=== PATIENT | male | born 1970 | race Caucasian/White ===

== ENCOUNTER 2021-10-17 21:22 | Inpatient (IN) | payer OTHER, SELFPAY ==
--- NOTE | ~2021-10-17 | CT_ITS ---
EXAMINATION: CT HEAD WITHOUT CONTRAST CLINICAL INFORMATION: Seizure COMPARISON: None TECHNIQUE: Contiguous axial imaging was performed from the skull base to vertex without intravenous administration of contrast. This CT examination was performed using dose optimization techniques as appropriate, variously including the following: *Automated exposure control *Adjustment of mA and/or kV according to patient size (this includes techniques or standardized protocols for targeted exams where dose is matched to indication/reason for exam; i.e. extremities or head) *Use of iterative reconstruction technique DLP: 820 mGy-cm FINDINGS: There is no midline shift. There is no mass effect. There is no hemorrhage. The basal cisterns appear patent. The posterior fossa is grossly within normal limits. No extra-axial collection. There is some evidence of atrophy in this patient. Some probable scattered areas of white matter ischemic change. Bone windows show grossly clear sinuses. Be difficult to exclude a small aneurysm in the left middle cerebral region seen on image 20 of series 2. Measures [address] head/brain wo IV con IMPRESSION: Negative acute noncontrast CT of the brain. There is some evidence of atrophy here and possible scattered white matter ischemic change. Cannot exclude a small aneurysm involving the left middle cerebral artery. Consider CTA to further evaluate Given the history of seizure if further evaluation is warranted recommendation is pre and postcontrast MRI.
--- NOTE | ~2021-10-17 | CT_ITS ---
CT ANGIOGRAM NECK WITH CONTRAST CT ANGIOGRAM BRAIN WITH CONTRAST CLINICAL INFORMATION: Question left MCA aneurysm. COMPARISON: Head CT 10/17/2021. TECHNIQUE: Test bolus sequences followed by intravenous administration 70 mL of Omnipaque 350. Helical imaging was performed in the axial plane from the thoracic inlet to the skull vertex. Delayed postcontrast imaging of the head was also performed. The data was processed at the vascular technologist sonographer workstation for generation of MIP sequences. Angled MIPs and volume rendered reformatted images were also generated at an offline 3D workstation under concurrent supervision. Stenoses are assessed in accordance with NASCET criteria unless otherwise indicated. This CT examination was performed using dose optimization techniques as appropriate, variously including the following: *Automated exposure control *Adjustment of mA and/or kV according to patient size (this includes techniques or standardized protocols for targeted exams where dose is matched to indication/reason for exam; i.e. extremities or head) *Use of iterative reconstruction technique FINDINGS: BRAIN: Empty sella again noted. No pathologic enhancement intracranially. [There is no intracranial hemorrhage, hydrocephalus, extra-axial surface collection, midline shift, or other herniation pattern. Ware to white matter differentiation is diffusely maintained without evidence of an evolved acute territorial infarct. The basilar cisterns are preserved. No significant soft tissue abnormality. No acute osseous abnormality. The paranasal sinuses and the mastoid air cells are well aerated.] CERVICAL SOFT TISSUES AND LUNG APICES: Multilevel cervical spondylosis. Imaged upper lungs are clear. No significant soft tissue findings. NECK CTA: [There is a classic 3 vessel configuration of the aortic arch. Proximal arch vessels are non-stenotic. The vertebral arteries are codominant. No significant ostial stenosis is visualized on either side. Both vertebral arteries are widely patent throughout their extracranial cervical course. Both common and internal carotid arteries are normal in course and caliber.] BRAIN CTA: [There is normal opacification of major intracranial arteries. No focal flow-limiting stenosis nor discrete proximal large artery occlusion. There is a 2 mm infundibulum versus aneurysm at the origin of the hypoplastic left posterior communicating artery. Possible 2 mm aneurysm projecting superiorly from the left MCA trifurcation on image 399 of series 6. Timing of the contrast bolus allows assessment of the major dural venous sinuses, which all opacify normally] CT/CT angio head neck IMPRESSION: - No acute intracranial findings. Empty sella. - Possible 2 mm aneurysm projecting superiorly from the left MCA trifurcation on image 399 of series 6. 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
--- NOTE | 2021-10-17 21:41 | ECG_ITS ---
Test Reason : SEIZURE Blood Pressure : / mmHG Vent. Rate : 092 BPM Atrial Rate : 092 BPM P-R Int : 142 ms QRS Dur : 094 ms QT Int : 392 ms P-R-T Axes : 042 -59 035 degrees QTc Int : 484 ms Normal sinus rhythm Incomplete right bundle branch block Left anterior fascicular block Cannot rule out Anterior infarct , age undetermined Abnormal ECG No previous ECGs available Referred By: Tita Palacio Electronically Signed By:HIREN REYES
[2021-10-17 21:44] VITALS: BP 160/95; BP 190/108; PULSE 110; PULSE 96; RESP 20; TEMP 38.2; O2SAT 94; O2SAT 97; BMI 26.4
--- NOTE | 2021-10-17 21:45 | PC.NURSE ---
seizure pads applied
--- NOTE | 2021-10-17 21:45 | ED.GENADULT ---
HPI - General Adult General Chief complaint: Seizure Stated complaint: sycope Time Seen by Provider: 10/17/21 21:32 Source: patient and EMS Mode of arrival: EMS Limitations: other ( Mildly postictal) History of Present Illness HPI narrative: patient comes to the emergency room after having a seizure. To patient's knowledge, he does not remember what happened. fire department reports that patient was in [place] with his family, his witnessed the patient having a seizure, unclear how long it lasted. The reports that the patient has history of alcohol abuse, currently going to [place]. patient states that the last time he had any alcohol was couple of months ago. Patient has no history of seizures. Patient is visiting from a town near [place], [place]. Patient is helping his daughter moved to [employer]. Patient denies any headache, no pain, patient seems to be a bit confused, still postictal. No chest pain or shortness of breath. Related Data Allergies Allergy/AdvReac Type Severity Reaction Status Date / Time No Known Allergies Allergy Verified 10/17/21 21:41 Review of Systems Review of Systems: Constitutional : No Weight loss, No Fever, No Chills, No Night Sweats, No Fatigue, No Malaise ENT/Mouth : No Hearing loss, No Ear Pain, No Nasal Congestion, No Sinus Pain, No Hoarseness, No sore throat, No Rhinorrhea, No Swallowing Difficulty Eyes: No Eye Pain, No Swelling, No Redness, No Foreign Body, No Discharge, No Vision Changes Cardiovascular : No Chest Pain, No SOB, No Dyspnea on Exertion, No Orthopnea, No Edema, No Palpitations Respiratory : No Cough, No Sputum, No Wheezing, No Smoke Exposure, No Dyspnea Gastrointestinal : No Nausea, No Vomiting, No Diarrhea, No Constipation, No abdominal Pain, No Hematochezia, No Melena Genitourinary : no irregular bleeding, No Dysuria, No Urinary Frequency, No Hematuria, No Urinary Incontinence, No Urgency, No Flank Pain, No Urinary Flow Changes, No Hesitancy Musculoskeletal : No joint pain, No Myalgias, No Joint Swelling Skin : No Skin Lesions, No rash Neuro : No Weakness, No Numbness, No Paresthesias, No Loss of Consciousness, No Dizziness, No Headache , bystanders confirmed they saw that the patient had a seizure Psych : No Anxiety/Panic, No Depression, No SI/HI/AH/VH, No Social Issues, Heme/Lymph: No Bruising, No Bleeding,No Lymphadenopathy Endocrine : No Polyuria, No Polydipsia, No Temperature Intolerance [facility] Past Medical History Medical History (Updated 10/18/21 @ 00:22 by Tita Palacio MD) Alcohol dependence Hypertension Social History Social History Patient Tobacco Use Status: Never used Tobacco Use of substances other than those prescribed or required for medical reasons: No Advance Directives: No Advance Directives Information Provided: Yes Physical Exam ED Vital Signs: Vital Signs - 24 hr 10/17/21 21:44 10/18/21 00:04 Temperature 100.8 F H 98.8 F Pulse Rate 96 Respiratory Rate 20 Blood Pressure 190/108 H Pulse Oximetry 94 Oxygen Delivery Method Room Air BMI result Body Mass Index 26.4 Const Other: Appearance: No acute distress. alert and oriented x3, mildly confused/ postictal, did not have urinary incontinence Eyes: Pupils equal, round and reactive to light. ENT: Pharynx normal. no tongue biting Neck: Normal inspection. Neck supple. No lymph nodes noted. No crepitus CVS: Normal heart rate and rhythm. Pulses normal. Normal S1 and S2 Respiratory: No respiratory distress. Breath sounds normal. No Wheezing. No rales Abdomen: Soft and nontender. No rigidity. No distention. Skin: Skin warm and dry. Normal skin color. Normal skin turgor. Extremities: No lower extremity edema. No Lacerations. No Rash Neuro: Oriented X 3. No motor deficit. No sensory deficit. Moving all extremities. No slurred speech. CN 2 through 12 grossly intact Psych: calm, cooperative, normal affect Course Course Course Narrative: patient states that the last time he had alcohol was over 2 months ago, and he has no history of seizures. All of the patient's labs and imaging pending. At this time, patient is alert and oriented x3, but slightly confused/postictal. Patient's blood alcohol is negative. I was able to get in touch with the patient's ex- with his permission. Alona, patient's ex- is concerned that the patient is actually having alcohol withdrawal seizures. She states that the patient does lie a lot about his alcohol intake and when was the last time that he consumed alcohol. He has been seen intoxicated less than a month ago. They do agree that the patient has been trying not to drink as much in this trip. Overall, it is likely that the patient had an alcohol withdrawal seizure. On arrival, patient received 2 mg of p.o. lorazepam. Patient is being started on phenobarb protocol. I discussed the patient with Dr. Tejada, patient being admitted Medical Decision Making Lab Data Result diagrams: 10/17/21 22:12 10/17/21 22:12 Labs: Lab Results 10/17/21 10/17/21 10/17/21 Range/Units 22:11 22:12 22:12 WBC 5.3 (4.8-10.8) X10*3/uL RBC 3.61 L (4.60-5.80) X10*6/uL Hgb 12.2 L (14.0-18.0) g/dl Hct 36.9 L (42.0-52.0) % MCV 102.2 H (80.0-98.0) fL MCH 33.8 H (27.0-33.0) pg MCHC 33.1 (31.0-36.0) g/dl RDW 12.6 (11.0-16.0) % Plt Count 175 (160-400) X10*3/uL MPV 9.4 (9.4-12.4) fL Immature Gran % (Auto) 0.6 H (0.0-0.4) % Neut % (Auto) 70.5 (45-73) % Lymph % (Auto) 11.0 L (20-40) % [place] % (Auto) 15.0 H (2-11) % Eos % (Auto) 2.2 (0-4) % Baso % (Auto) 0.7 (0-2) % Lymph # (Auto) 0.6 L (1.2-4.9) X10*3/uL [place] # (Auto) 0.8 (0.1-1.2) X10*3/uL Eos # (Auto) 0.1 (0.0-0.4) X10*3/uL Baso # (Auto) 0.0 (0.0-0.2) X10*3/uL Abs Immat Gran (auto) 0.03 (0.00-0.03) X10*3/uL Absolute Neuts (auto) 3.8 (2.0-8.3) x10*3/uL Absolute Nucleated RBC 0.000 (0.0-0.012) X10*3/uL Nucleated RBC % (auto) 0.0 (0.0-0.2) /100WBC PT 13.2 H (10.0-13.1) SEC INR 1.1 (0.9-1.1) Sodium (135-145) mmol/L Potassium (3.3-5.1) mmol/L Chloride (96-108) mmol/L Carbon Dioxide (22-29) mmol/L Anion Gap (12-20) BUN (9-16) mg/dL Creatinine (0.5-1.4) mg/dL Estim Creat Clear Calc Estimated GFR Random Glucose (60-115) mg/dL Lactic Acid 4.8 H* (0.5-2.0) mmol/L Calcium (8.4-10.2) mg/dL Magnesium (1.6-2.6) mg/dL Total Bilirubin (0.0-1.0) mg/dL Direct Bilirubin (0.0-0.5) mg/dL AST (5-37) U/L ALT (0-40) U/L Alkaline Phosphatase (39-117) U/L Troponin I High Sens (<3.5-35.0) ng/L Total Protein (6.5-8.0) g/dL Albumin (3.5-5.0) g/dL Ethyl Alcohol mg/dL COVID-19 (DARIAN) (Negative) COVID-19 Clin Com 10/17/21 10/17/21 10/17/21 Range/Units 22:12 22:12 22:12 WBC (4.8-10.8) X10*3/uL RBC (4.60-5.80) X10*6/uL Hgb (14.0-18.0) g/dl Hct (42.0-52.0) % MCV (80.0-98.0) fL MCH (27.0-33.0) pg MCHC (31.0-36.0) g/dl RDW (11.0-16.0) % Plt Count (160-400) X10*3/uL MPV (9.4-12.4) fL Immature Gran % (Auto) (0.0-0.4) % Neut % (Auto) (45-73) % Lymph % (Auto) (20-40) % [place] % (Auto) (2-11) % Eos % (Auto) (0-4) % Baso % (Auto) (0-2) % Lymph # (Auto) (1.2-4.9) X10*3/uL [place] # (Auto) (0.1-1.2) X10*3/uL Eos # (Auto) (0.0-0.4) X10*3/uL Baso # (Auto) (0.0-0.2) X10*3/uL Abs Immat Gran (auto) (0.00-0.03) X10*3/uL Absolute Neuts (auto) (2.0-8.3) x10*3/uL Absolute Nucleated RBC (0.0-0.012) X10*3/uL Nucleated RBC % (auto) (0.0-0.2) /100WBC PT (10.0-13.1) SEC INR (0.9-1.1) Sodium 141 (135-145) mmol/L Potassium 4.2 (3.3-5.1) mmol/L Chloride 104 (96-108) mmol/L Carbon Dioxide 20 L (22-29) mmol/L Anion Gap 21 H (12-20) BUN 16 (9-16) mg/dL Creatinine 1.01 (0.5-1.4) mg/dL Estim Creat Clear Calc 98.8 Estimated GFR > 60 Random Glucose 117 H (60-115) mg/dL Lactic Acid (0.5-2.0) mmol/L Calcium 9.5 (8.4-10.2) mg/dL Magnesium 1.6 (1.6-2.6) mg/dL Total Bilirubin 1.1 H (0.0-1.0) mg/dL Direct Bilirubin 0.6 H (0.0-0.5) mg/dL AST 145 H (5-37) U/L ALT 102 H (0-40) U/L Alkaline Phosphatase 89 (39-117) U/L Troponin I High Sens 6.8 (<3.5-35.0) ng/L Total Protein 7.4 (6.5-8.0) g/dL Albumin 4.5 (3.5-5.0) g/dL Ethyl Alcohol mg/dL COVID-19 (DARIAN) Negative (Negative) COVID-19 Clin Com See Note 10/17/21 Range/Units 22:12 WBC (4.8-10.8) X10*3/uL RBC (4.60-5.80) X10*6/uL Hgb (14.0-18.0) g/dl Hct (42.0-52.0) % MCV (80.0-98.0) fL MCH (27.0-33.0) pg MCHC (31.0-36.0) g/dl RDW (11.0-16.0) % Plt Count (160-400) X10*3/uL MPV (9.4-12.4) fL Immature Gran % (Auto) (0.0-0.4) % Neut % (Auto) (45-73) % Lymph % (Auto) (20-40) % [place] % (Auto) (2-11) % Eos % (Auto) (0-4) % Baso % (Auto) (0-2) % Lymph # (Auto) (1.2-4.9) X10*3/uL [place] # (Auto) (0.1-1.2) X10*3/uL Eos # (Auto) (0.0-0.4) X10*3/uL Baso # (Auto) (0.0-0.2) X10*3/uL Abs Immat Gran (auto) (0.00-0.03) X10*3/uL Absolute Neuts (auto) (2.0-8.3) x10*3/uL Absolute Nucleated RBC (0.0-0.012) X10*3/uL Nucleated RBC % (auto) (0.0-0.2) /100WBC PT (10.0-13.1) SEC INR (0.9-1.1) Sodium (135-145) mmol/L Potassium (3.3-5.1) mmol/L Chloride (96-108) mmol/L Carbon Dioxide (22-29) mmol/L Anion Gap (12-20) BUN (9-16) mg/dL Creatinine (0.5-1.4) mg/dL Estim Creat Clear Calc Estimated GFR Random Glucose (60-115) mg/dL Lactic Acid (0.5-2.0) mmol/L Calcium (8.4-10.2) mg/dL Magnesium (1.6-2.6) mg/dL Total Bilirubin (0.0-1.0) mg/dL Direct Bilirubin (0.0-0.5) mg/dL AST (5-37) U/L ALT (0-40) U/L Alkaline Phosphatase (39-117) U/L Troponin I High Sens (<3.5-35.0) ng/L Total Protein (6.5-8.0) g/dL Albumin (3.5-5.0) g/dL Ethyl Alcohol < 10 mg/dL COVID-19 (DARIAN) (Negative) COVID-19 Clin Com Critical Care Time Critical Care Time Critical Care Time: Yes Total Critical Care Time: 30 Attestation: I have personally provided critical care time. Time includes review of lab data, radiology results, discussion with consultants, and monitoring for potential decompensation. Intervention performed as documented. Discharge Plan Discharge Clinical Impression: Alcohol withdrawal seizure Patient Disposition: Admitted As Inpatient
--- NOTE | 2021-10-17 22:06 | PC.NURSE ---
pt to radiology
--- NOTE | 2021-10-17 22:15 | PC.NURSE ---
Addendum entered by Martinez Snyder 10/17/21 22:27: Patient IVF are running and meds were given by doctor order. Original Note: Patient came in experiencing tonic siezures, elevated vs d/t HTN. Patient does not recall the event or what he was doing prior the event. Patient has an IV and labs were drawn.
[2021-10-17 22:20] LABS: Basophils Percent Auto 0.7 % (0-2); Eosinophils Absolute Auto 0.1 X10*3/uL (0.0-0.4); Eosinophils Percent Auto 2.2 % (0-4); Hematocrit 36.9 % (42.0-52.0); Hemoglobin 12.2 g/dl (14.0-18.0); Imm Gran Abs Auto 0.03 X10*3/uL (0.00-0.03); Imm Gran Pct Auto 0.6 % (0.0-0.4); Lymphocytes Absolute Auto 0.6 X10*3/uL (1.2-4.9); MANUAL DIFF FLAG NO; Mean Corpuscular HGB Conc 33.1 g/dl (31.0-36.0); Mean Corpuscular Hemoglobin 33.8 pg (27.0-33.0); Mean Corpuscular Volume 102.2 fL (80.0-98.0); Mean Platelet Volume 9.4 fL (9.4-12.4); Monocytes Absolute Auto 0.8 X10*3/uL (0.1-1.2); Neutrophils Absolute Auto 3.8 x10*3/uL (2.0-8.3); Neutrophils Percent Auto 70.5 % (45-73); Platelet Count 175 X10*3/uL (160-400); Red Blood Count 3.61 X10*6/uL (4.60-5.80); Red Cell Distribution Width 12.6 % (11.0-16.0); White Blood Count 5.3 X10*3/uL (4.8-10.8)
[2021-10-17] MEDS: 0.9 % Sodium Chloride 1,000 ML 999 ML IVCONT ×2 (22:24→23:59)
[2021-10-17] MEDS: LORazepam 1 MG TABLET 2 MG PO (22:26)
[2021-10-17 22:27] LABS: INTERNATIONAL NORM RATIO 1.1 (0.9-1.1); Prothrombin Time 13.2 SEC (10.0-13.1)
[2021-10-17 22:35] LABS: Lactic Acid 4.8 mmol/L (0.5-2.0)
[2021-10-17 22:37] LABS: COVID-19 Test Negative (Negative); IDNOW Serial# 55D5AD1C
[2021-10-17 22:42] LABS: Troponin-I High Sensitivity 6.8 ng/L (<3.5-35.0)
[2021-10-17 22:54] LABS: Ethanol < 10 mg/dL
[2021-10-17 23:01] LABS: Alanine Aminotransferase 102 U/L (0-40); Albumin Level 4.5 g/dL (3.5-5.0); Alkaline Phosphatase 89 U/L (39-117); Anion Gap 21 (12-20); Aspartate Amino Transferase 145 U/L (5-37); Bilirubin Direct 0.6 mg/dL (0.0-0.5); Bilirubin Total 1.1 mg/dL (0.0-1.0); Blood Urea Nitrogen 16 mg/dL (9-16); Calcium 9.5 mg/dL (8.4-10.2); Carbon Dioxide 20 mmol/L (22-29); Chloride 104 mmol/L (96-108); Creatinine Clr Calc Pharmacy 98.8; Estimated Glomerular Filt Rate > 60; Glucose Random 117 mg/dL (60-115); Magnesium 1.6 mg/dL (1.6-2.6); Potassium 4.2 mmol/L (3.3-5.1); Sodium 141 mmol/L (135-145); Total Protein 7.4 g/dL (6.5-8.0)
[2021-10-18] VITALS (7 sets, daily range): BP systolic 136–167; BP diastolic 82–103; PULSE 56–81; RESP 16–18; TEMP 36.1–37.2; O2SAT 97–100
[2021-10-18 00:17] LABS: Reflex Lactate? Lactic Acid Added
[2021-10-18 01:00] LABS: ~Lactic Acid-LAB USE ONLY 1.2 mmol/L (0.5-2.0)
[2021-10-18] MEDS: PHENobarbitaL sodium 130 MG/ML IM ONCE 325 MG IM (01:20)
--- NOTE | 2021-10-18 02:02 | PM.IMHP ---
History of Present Illness Date of Service: 10/18/21 Chief Complaint: Seizure 50-year-old male with a past medical history hypertension, abuse presented the hospital with a chief complaint of seizure. Patient reports that he was outside with his family, suddenly he whole body shaking followed by briefly lost consciousness, family lower him ground. Denies any tongue biting, stool accident or urinary accident. Denies any prior history of seizures. Reports he drinks alcohol but mentions last drink was about months ago but unsure of the timing. Per the family patient in has been drinking alcohol. Patient was tremulous and shaky at the time of my interview. Denies any chest pain palpitations. Denies any nausea vomiting or diarrhea. Denies any abdominal discomfort. Patient came from [place] for his daughter's graduation. Patient denies any fever chills cough or sputum production. Review of all other systems is negative except mentioned above ER course: Per ER team patient was tremulous, shaky concern for alcohol withdrawal, started on phenobarb protocol. CT head showed no acute findings. Patient also received Ativan. [facility] Medical History (Updated 10/18/21 @ 15:16 by LI Akbar) Alcohol dependence Hypertension Pertinent family history: Denies any family history of seizures Social History Household Members: Family Housing: House Do you presently have visiting nurse or other home services: No Patient Tobacco Use Status: Never used Tobacco Smoked in Last 30 Days: No e-Cigarette/Vaping Use: Never Used Patient Interested in Nicotine Replacement: No Patient Given Instructions on How to Stop Smoking: No Second Hand Smoke Exposure: No Use of substances other than those prescribed or required for medical reasons: No Currently Displaying Signs/Symptoms of Drug Intoxication Withdrawal: No Any prior treatment program specific to substance use: No Have you been hit, kicked, punched, or otherwise hurt by someone within the past year? If so, by whom?: No Do you feel safe in your current relationship?: Yes Is there a partner from a previous relationship who is making you feel unsafe now?: No Are you made to feel afraid or neglected: No Advance Directives: No Advance Directives Information Provided: Yes Do you have thoughts of harming others: None Do you have a plan to hurt others: No Plan Recently lost weight without trying: No Eating poorly because of decreased appetite: No Nutrition Risks: No Nutritional Risk Poor oral hygiene: No service: No Meds Allergies Allergy/AdvReac Type Severity Reaction Status Date / Time No Known Allergies Allergy Verified 10/17/21 21:41 Active Medications: Current Medications Enoxaparin Sodium (Enoxaparin Sodium 40 Mg/0.4 Ml Syringe) 40 mg SUBCUT DAILY [facility] Famotidine (Famotidine 20 Mg Tablet) 20 mg PO BID [facility] Folic Acid (Folic Acid 1 Mg Tablet) 1 mg PO DAILY [facility] Stop: 10/21/21 08:59 Dextrose/Sodium Chloride (D51/2ns) 1,000 mls @ 100 mls/hr IVCONT .Q10H [facility]HE[facility] Melatonin (Melatonin 3 Mg Tablet) 6 mg PO BEDTIME PRN PRN Reason: Insomnia Multivitamins/Vitamin C (Multivitamin Tablet) 1 tab PO DAILY [facility] Stop: 10/21/21 08:59 Pharmacy Consult (Consult Rx Etoh Phenob Im/Po) 1 each MISCELLANE ONCE PRN; Protocol PRN Reason: Consult order Phenobarbital Sodium (Phenobarbital Sodium 130 Mg/Ml Vial Im Q3hx2) 234 mg IM Q3H RAHEEL Stop: 10/18/21 07:01 Senna (Sennosides 8.6 Mg Tablet) 17.2 mg PO BEDTIME PRN PRN Reason: Constipation Sodium Chloride (0.9 % Sodium Chloride Flush 3 Ml Syringe) 3 ml IVFLUSH QSHIFT [facility] Thiamine HCl (Thiamine Hcl 100 Mg Tablet) 100 mg PO DAILY [facility] Stop: 10/21/21 08:59 Home Medications Medication Instructions Recorded Confirmed Last Taken Type losartan 50 mg tablet 1 tab PO DAILY 10/18/21 10/18/21 10/16/21 History Physical Exam Vital Signs and Narrative: Vital Signs: Last Vital Signs Temp 98.9 F 10/18/21 00:32 Pulse 81 10/18/21 00:32 Resp 16 10/18/21 00:32 BP 151/82 H 10/18/21 00:32 Pulse Ox 97 10/18/21 00:32 O2 Del Method 10/18/21 00:32 BMI result Body Mass Index 26.4 Gen: Appears be in no acute distress HEENT: NCAT, Moist mucosa. Pulmonary: Vesicular breath sounds, fair air entry CVS: Normal S1-S2 Abdomen: BS+, Soft, Nontender Extremities: Warm well perfused Neuro: Alert and awake. Grossly nonfocal Results Labs CBC and Chem 7: 10/18/21 07:41 10/19/21 06:19 Labs: Laboratory Results - last 24 hr 10/17/21 10/17/21 10/17/21 22:11 22:12 22:12 MCV 102.2 H MCH 33.8 H MCHC 33.1 RDW 12.6 Plt Count 175 MPV 9.4 Immature Gran % (Auto) 0.6 H Neut % (Auto) 70.5 Lymph % (Auto) 11.0 L [place] % (Auto) 15.0 H Eos % (Auto) 2.2 Baso % (Auto) 0.7 Lymph # (Auto) 0.6 L [place] # (Auto) 0.8 Eos # (Auto) 0.1 Baso # (Auto) 0.0 Abs Immat Gran (auto) 0.03 Absolute Neuts (auto) 3.8 Absolute Nucleated RBC 0.000 Nucleated RBC % (auto) 0.0 PT 13.2 H INR 1.1 Anion Gap Estim Creat Clear Calc Estimated GFR Random Glucose Lactic Acid 4.8 H* Lactic Acid F/U @ 2Hr Calcium Magnesium Total Bilirubin Direct Bilirubin AST ALT Alkaline Phosphatase Total Protein Albumin Ethyl Alcohol COVID-19 (DARIAN) COVID-Adrenaline Mobility 10/17/21 10/17/21 10/17/21 22:12 22:12 22:12 MCV MCH MCHC RDW Plt Count MPV Immature Gran % (Auto) Neut % (Auto) Lymph % (Auto) [place] % (Auto) Eos % (Auto) Baso % (Auto) Lymph # (Auto) [place] # (Auto) Eos # (Auto) Baso # (Auto) Abs Immat Gran (auto) Absolute Neuts (auto) Absolute Nucleated RBC Nucleated RBC % (auto) PT INR Anion Gap 21 H Estim Creat Clear Calc 98.8 Estimated GFR > 60 Random Glucose 117 H Lactic Acid Lactic Acid F/U @ 2Hr Calcium 9.5 Magnesium 1.6 Total Bilirubin 1.1 H Direct Bilirubin 0.6 H AST 145 H ALT 102 H Alkaline Phosphatase 89 Total Protein 7.4 Albumin 4.5 Ethyl Alcohol < 10 COVID-19 (DARIAN) Negative COVID-19 [place] Com See Note 10/18/21 00:41 MCV MCH MCHC RDW Plt Count MPV Immature Gran % (Auto) Neut % (Auto) Lymph % (Auto) [place] % (Auto) Eos % (Auto) Baso % (Auto) Lymph # (Auto) [place] # (Auto) Eos # (Auto) Baso # (Auto) Abs Immat Gran (auto) Absolute Neuts (auto) Absolute Nucleated RBC Nucleated RBC % (auto) PT INR Anion Gap Estim Creat Clear Calc Estimated GFR Random Glucose Lactic Acid Lactic Acid F/U @ 2Hr 1.2 Calcium Magnesium Total Bilirubin Direct Bilirubin AST ALT Alkaline Phosphatase Total Protein Albumin Ethyl Alcohol COVID-19 (DARIAN) COVID-19 Clin Com Imaging Radiologist's Impressions: Impressions Head CT 10/17/21 21:55 IMPRESSION: Negative acute noncontrast CT of the brain. There is some evidence of atrophy here and possible scattered white matter ischemic change. Cannot exclude a small aneurysm involving the left middle cerebral artery. Consider CTA to further evaluate Given the history of seizure if further evaluation is warranted recommendation is pre and postcontrast MRI. Assessment and Plan (1) Seizure: Status: Acute Plan 50-year-old male with a past medical history hypertension, abuse presented the hospital with a chief complaint of seizure. Seizure: Likely in setting of alcohol withdrawal. seizure precautions. Neurology follow-up Patient educated to avoid driving for 6 months of symptom free period. Alcohol abuse/withdrawal: Patient is started on phenobarb protocol. Thiamine folate and multivitamins. History of hypertension: Continue home losartan DVT prophylaxis: Lovenox Code status: Full code Quality Stroke Does the patient have a stroke diagnosis?: No VTE Prior VTE?: No VTE Risk Level:: Medical - moderate - high VTE Device Contraindication: Treatment Not Indicated VTE Drug Contraindication: N/A - Med Ordered
[2021-10-18] MEDS: Dextrose 5 % and 0.45 % NaCl 1,000 ML 100 ML IVCONT ×3 (02:27→22:33)
[2021-10-18] MEDS: PHENobarbitaL sodium 130 MG/ML VIAL IM Q3Hx2 234 MG IM ×2 (03:37→07:25)
[2021-10-18 03:41] LABS: Appearance Urine Clear; Color Urine DK YELLOW; Glucose Urine UA Negative (Negative); Leukocyte Esterase Urine Trace (Negative); Nitrite Urine Negative (Negative); PH 6.5 (5.0-9.0); Urine Blood Negative (Negative); Urine Ketones 15 mg/dL (Negative); Urine Protein 30 (1+) mg/dL (Neg-Trace)
[2021-10-18 03:46] LABS: Bacteria Urine None Seen (None Seen); Hyaline Casts Urine 0-2 /LPF (0-2); RBC Urine 0-2 /HPF (0-2); Squamous Epithelial Cell Urine 0-2 /HPF (0-2); WBC Urine 0-5 /HPF (0-5)
[2021-10-18 03:53] LABS: Amphetamine Screen Urine Not Detected (Not Detect); Barbiturates, Urine POSITIVE (Not Detect); Benzodiazepines Screen Urine Not Detected (Not Detect); Cannabinoid Screen Urine Not Detected (Not Detect); Cocaine Screen Urine Not Detected (Not Detect); Fentanyl, urine Not Detected (Not Detect); Opiate Screen Urine Not Detected (Not Detect); Phencyclidine Screen Urine Not Detected (Not Detect)
[2021-10-18 06:13] LABS: MANUAL DIFF FLAG NO
[2021-10-18 06:19] LABS: Basophils Percent Auto 0.9 % (0-2); Eosinophils Absolute Auto 0.1 X10*3/uL (0.0-0.4); Eosinophils Percent Auto 2.4 % (0-4); Hematocrit 34.4 % (42.0-52.0); Hemoglobin 11.4 g/dl (14.0-18.0); Imm Gran Abs Auto 0.03 X10*3/uL (0.00-0.03); Imm Gran Pct Auto 0.7 % (0.0-0.4); Lymphocytes Percent Auto 21.3 % (20-40); Mean Corpuscular HGB Conc 33.1 g/dl (31.0-36.0); Mean Corpuscular Hemoglobin 34.2 pg (27.0-33.0); Mean Corpuscular Volume 103.3 fL (80.0-98.0); Mean Platelet Volume 9.6 fL (9.4-12.4); Monocytes Absolute Auto 0.8 X10*3/uL (0.1-1.2); Monocytes Percent Auto 18.2 % (2-11); Neutrophils Absolute Auto 2.6 x10*3/uL (2.0-8.3); Neutrophils Percent Auto 56.5 % (45-73); Platelet Count 157 X10*3/uL (160-400); Red Blood Count 3.33 X10*6/uL (4.60-5.80); Red Cell Distribution Width 12.4 % (11.0-16.0); White Blood Count 4.6 X10*3/uL (4.8-10.8)
[2021-10-18] MEDS: 0.9 % Sodium Chloride Flush 3 ML SYRINGE IVFLUSH ×2 (07:27→20:19)
[2021-10-18 07:48] LABS: Hematocrit 33.9 % (42.0-52.0); Hemoglobin 11.2 g/dl (14.0-18.0); Mean Corpuscular Hemoglobin 33.9 pg (27.0-33.0); Mean Corpuscular Volume 102.7 fL (80.0-98.0); Mean Platelet Volume 9.2 fL (9.4-12.4); Platelet Count 142 X10*3/uL (160-400); Red Cell Distribution Width 12.6 % (11.0-16.0); White Blood Count 4.4 X10*3/uL (4.8-10.8)
[2021-10-18 08:12] LABS: Alanine Aminotransferase 85 U/L (0-40); Albumin Level 3.8 g/dL (3.5-5.0); Alkaline Phosphatase 76 U/L (39-117); Anion Gap 15 (12-20); Aspartate Amino Transferase 121 U/L (5-37); Bilirubin Direct 0.5 mg/dL (0.0-0.5); Blood Urea Nitrogen 11 mg/dL (9-16); Calcium 8.5 mg/dL (8.4-10.2); Carbon Dioxide 23 mmol/L (22-29); Chloride 107 mmol/L (96-108); Creatinine Clr Calc Pharmacy 126.4; Estimated Glomerular Filt Rate > 60; Glucose Random 101 mg/dL (60-115); Magnesium 1.7 mg/dL (1.6-2.6); Sodium 141 mmol/L (135-145); Total Protein 6.4 g/dL (6.5-8.0)
[2021-10-18] MEDS: Losartan Potassium 25 MG TABLET PO (09:16)
[2021-10-18] MEDS: Multivitamin TABLET 1 TAB PO (09:16)
[2021-10-18] MEDS: PHENobarbitaL 30 MG TABLET 60 MG PO ×2 (09:17→20:19)
[2021-10-18] MEDS: Folic Acid 1 MG TABLET PO (09:17)
[2021-10-18] MEDS: Thiamine HCL 100 MG TABLET PO (09:17)
[2021-10-18] MEDS: Famotidine 20 MG TABLET PO ×2 (09:17→20:19)
[2021-10-18] MEDS: Enoxaparin Sodium 40 MG/0.4 ML SYRINGE SUBCUT (09:18)
--- NOTE | 2021-10-18 09:23 | PHA.MEDREC ---
Pharmacy Consult ? Medication Reconciliation Pharmacy has completed the medication reconciliation. Patient reported medications. Amber Baker, ColeD
[2021-10-18] MEDS: iohexoL 350 MG/ML 100 ML INFUS..BTL IV (13:42)
--- NOTE | 2021-10-18 15:15 | HO.PM.IMPN ---
Subjective Subjective Date of Service: 10/18/21 Interval History: seen and examined this morning Follow-up for seizure Patient states that he has not been drinking alcohol for the past several weeks. He denies any history of seizure in the past Review of Systems Review of Systems: Yes all other systems are reviewed and are negative Constitutional Constitutional: Denies chills and Denies fever(s) ENT Ears, Nose, Mouth, and Throat: Denies dizziness Cardiovascular Cardiovascular: Denies chest pain and Denies dyspnea Respiratory Respiratory: Denies cough and Denies dyspnea Gastrointestinal Gastrointestinal: Denies abdominal pain Neurologic Neurologic: Denies dizziness Physical Exam Vital Signs: Vital Signs: Last Vital Signs Temp 98.9 F 10/18/21 00:32 Pulse 56 10/18/21 10:58 Resp 16 10/18/21 10:58 BP 144/90 H 10/18/21 10:58 Pulse Ox 98 10/18/21 10:58 O2 Del Method 10/18/21 10:58 BMI result Body Mass Index 26.4 Const: General: cooperative, comfortable, alert and awake Nutritional Appearance: overweight Orientation/consciousness: patient oriented x3 Eyes: Pupils: Equal, round and reactive pupils present Resp: Effort & Inspection: normal respiratory effort and able to speak in complete sentences Auscultation: clear to auscultation bilaterally Cardio: Rate: regular rate Heart sounds: S1 normal heart sound present and S2 normal heart sound present GI: Inspection: No distended Palpation (GI): Soft to palpation and nontender Neuro: General: patient oriented x3 Cranial nerves: Yes Equal, round and reactive pupils present Extrem: Other: able to move all 4 extremities spontaneously, grossly nonfocal Objective Data Active Medications Enoxaparin Sodium (Enoxaparin Sodium 40 Mg/0.4 Ml Syringe) 40 mg SUBCUT DAILY [facility] Last Admin: 10/18/21 09:18 Dose: 40 mg Documented By: MAR Famotidine (Famotidine 20 Mg Tablet) 20 mg PO BID [facility] Last Admin: 10/18/21 09:17 Dose: 20 mg Documented By: MAR Folic Acid (Folic Acid 1 Mg Tablet) 1 mg PO DAILY [facility] Stop: 10/21/21 08:59 Last Admin: 10/18/21 09:17 Dose: 1 mg Documented By: MAR Dextrose/Sodium Chloride (D51/2ns) 1,000 mls @ 100 mls/hr IVCONT .Q10H [facility] Last Admin: 10/18/21 11:37 Dose: 100 mls/hr Documented By: MARIO Losartan Potassium (Losartan Potassium 25 Mg Tablet) 25 mg PO DAILY [facility]; Protocol Last Admin: 10/18/21 09:16 Dose: 25 mg Documented By: MAR Melatonin (Melatonin 3 Mg Tablet) 6 mg PO BEDTIME PRN PRN Reason: Insomnia Multivitamins/Vitamin C (Multivitamin Tablet) 1 tab PO DAILY [facility] Stop: 10/21/21 08:59 Last Admin: 10/18/21 09:16 Dose: 1 tab Documented By: MAR Pharmacy Consult (Consult Rx Etoh Phenob Im/Po) 1 each MISCELLANE ONCE PRN; Protocol PRN Reason: Consult order Phenobarbital (Phenobarbital 30 Mg Tablet) 60 mg PO BID [facility]; Protocol Stop: 10/19/21 21:01 Last Admin: 10/18/21 09:17 Dose: 60 mg Documented By: MAR Phenobarbital (Phenobarbital 30 Mg Tablet) 30 mg PO BID [facility]; Protocol Stop: 10/21/21 21:01 Phenobarbital (Phenobarbital 30 Mg Tablet) 30 mg PO DAILY [facility]; Protocol Stop: 10/23/21 09:01 Senna (Sennosides 8.6 Mg Tablet) 17.2 mg PO BEDTIME PRN PRN Reason: Constipation Sodium Chloride (0.9 % Sodium Chloride Flush 3 Ml Syringe) 3 ml IVFLUSH QSHIFT [facility] Last Admin: 10/18/21 07:27 Dose: 3 ml Documented By: MARIO Thiamine HCl (Thiamine Hcl 100 Mg Tablet) 100 mg PO DAILY [facility] Stop: 10/21/21 08:59 Last Admin: 10/18/21 09:17 Dose: 100 mg Documented By: MAR Labs CBC & Chem 7: 10/18/21 07:41 10/18/21 07:41 Labs: Laboratory Results - last 24 hr 10/17/21 10/17/21 10/17/21 22:11 22:12 22:12 MCV 102.2 H MCH 33.8 H MCHC 33.1 RDW 12.6 Plt Count 175 MPV 9.4 Immature Gran % (Auto) 0.6 H Neut % (Auto) 70.5 Lymph % (Auto) 11.0 L [place] % (Auto) 15.0 H Eos % (Auto) 2.2 Baso % (Auto) 0.7 Lymph # (Auto) 0.6 L [place] # (Auto) 0.8 Eos # (Auto) 0.1 Baso # (Auto) 0.0 Abs Immat Gran (auto) 0.03 Absolute Neuts (auto) 3.8 Absolute Nucleated RBC 0.000 Nucleated RBC % (auto) 0.0 PT 13.2 H INR 1.1 Anion Gap Estim Creat Clear Calc Estimated GFR Random Glucose Lactic Acid 4.8 H* Lactic Acid F/U @ 2Hr Calcium Magnesium Total Bilirubin Direct Bilirubin AST ALT Alkaline Phosphatase Total Protein Albumin Urine Color Urine Appearance Urine pH Ur Specific Cord Urine Protein Urine Glucose (UA) Urine Ketones Urine Blood Urine Nitrite Ur Leukocyte Esterase Urine RBC Urine WBC Ur Squamous Epith Cells Urine Bacteria Hyaline Casts Urine Opiates Screen Urine Fentanyl Screen Ur Barbiturates Screen Ur Phencyclidine Scrn Ur Amphetamines Screen U Benzodiazepines Scrn Urine Cocaine Screen U Marijuana (THC) Screen Ethyl Alcohol COVID-19 ([facility]) COVID-19 Clin Com 10/17/21 10/17/21 10/17/21 22:12 22:12 22:12 MCV MCH MCHC RDW Plt Count MPV Immature Gran % (Auto) Neut % (Auto) Lymph % (Auto) [place] % (Auto) Eos % (Auto) Baso % (Auto) Lymph # (Auto) [place] # (Auto) Eos # (Auto) Baso # (Auto) Abs Immat Gran (auto) Absolute Neuts (auto) Absolute Nucleated RBC Nucleated RBC % (auto) PT INR Anion Gap 21 H Estim Creat Clear Calc 98.8 Estimated GFR > 60 Random Glucose 117 H Lactic Acid Lactic Acid F/U @ 2Hr Calcium 9.5 Magnesium 1.6 Total Bilirubin 1.1 H Direct Bilirubin 0.6 H AST 145 H ALT 102 H Alkaline Phosphatase 89 Total Protein 7.4 Albumin 4.5 Urine Color Urine Appearance Urine pH Ur Specific Cord Urine Protein Urine Glucose (UA) Urine Ketones Urine Blood Urine Nitrite Ur Leukocyte Esterase Urine RBC Urine WBC Ur Squamous Epith Cells Urine Bacteria Hyaline Casts Urine Opiates Screen Urine Fentanyl Screen Ur Barbiturates Screen Ur Phencyclidine Scrn Ur Amphetamines Screen U Benzodiazepines Scrn Urine Cocaine Screen U Marijuana (THC) Screen Ethyl Alcohol < 10 COVID-19 ([facility]IAN) Negative COVID-19 Clin Com See Note 10/18/21 10/18/21 10/18/21 00:41 03:31 03:31 MCV MCH MCHC RDW Plt Count MPV Immature Gran % (Auto) Neut % (Auto) Lymph % (Auto) [place] % (Auto) Eos % (Auto) Baso % (Auto) Lymph # (Auto) [place] # (Auto) Eos # (Auto) Baso # (Auto) Abs Immat Gran (auto) Absolute Neuts (auto) Absolute Nucleated RBC Nucleated RBC % (auto) PT INR Anion Gap Estim Creat Clear Calc Estimated GFR Random Glucose Lactic Acid Lactic Acid F/U @ 2Hr 1.2 Calcium Magnesium Total Bilirubin Direct Bilirubin AST ALT Alkaline Phosphatase Total Protein Albumin Urine Color DK YELLOW Urine Appearance Clear Urine pH 6.5 Ur Specific Cord 1.020 Urine Protein 30 (1+) H Urine Glucose (UA) Negative Urine Ketones 15 Urine Blood Negative Urine Nitrite Negative Ur Leukocyte Esterase Trace H Urine RBC 0-2 Urine WBC 0-5 Ur Squamous Epith Cells 0-2 Urine Bacteria None Seen Hyaline Casts 0-2 Urine Opiates Screen Not Detected Urine Fentanyl Screen Not Detected Ur Barbiturates Screen POSITIVE H Ur Phencyclidine Scrn Not Detected Ur Amphetamines Screen Not Detected U Benzodiazepines Scrn Not Detected Urine Cocaine Screen Not Detected U Marijuana (THC) Screen Not Detected Ethyl Alcohol COVID-19 ([facility]) COVID-19 Clin Com 10/18/21 10/18/21 10/18/21 06:01 07:41 07:41 MCV 103.3 H 102.7 H MCH 34.2 H 33.9 H MCHC 33.1 33.0 RDW 12.4 12.6 Plt Count 157 L 142 L MPV 9.6 9.2 L Immature Gran % (Auto) 0.7 H Neut % (Auto) 56.5 Lymph % (Auto) 21.3 [place] % (Auto) 18.2 H Eos % (Auto) 2.4 Baso % (Auto) 0.9 Lymph # (Auto) 1.0 L [place] # (Auto) 0.8 Eos # (Auto) 0.1 Baso # (Auto) 0.0 Abs Immat Gran (auto) 0.03 Absolute Neuts (auto) 2.6 Absolute Nucleated RBC 0.000 0.000 Nucleated RBC % (auto) 0.0 0.0 PT INR Anion Gap 15 Estim Creat Clear Calc 126.4 Estimated GFR > 60 Random Glucose 101 Lactic Acid Lactic Acid F/U @ 2Hr Calcium 8.5 D Magnesium 1.7 Total Bilirubin 1.0 Direct Bilirubin 0.5 AST 121 H ALT 85 H Alkaline Phosphatase 76 Total Protein 6.4 L Albumin 3.8 Urine Color Urine Appearance Urine pH Ur Specific Cord Urine Protein Urine Glucose (UA) Urine Ketones Urine Blood Urine Nitrite Ur Leukocyte Esterase Urine RBC Urine WBC Ur Squamous Epith Cells Urine Bacteria Hyaline Casts Urine Opiates Screen Urine Fentanyl Screen Ur Barbiturates Screen Ur Phencyclidine Scrn Ur Amphetamines Screen U Benzodiazepines Scrn Urine Cocaine Screen U Marijuana (THC) Screen Ethyl Alcohol COVID-19 ([facility]) COVID-19 Clin Com Assessment and Plan (1) Seizure: Status: Acute Plan this is a 50-year-old male presents to the emergency department after apparent seizure new onset seizure Patient denies use of alcohol in the past several weeks Brain CT negative for acute stroke, showing question of left MCA aneurysm, recommending brain CTA - CTA pending - seizure precautions history of alcohol use denies current alcohol use does not appear to be in acute alcohol withdrawal at this time was started on phenobarbital protocol, will continue hypertension Continue losartan DVT prophylaxis -Lovenox Attending- Dr. Howell Patient requires ongoing inpatient stay for workup due to new onset seizure Quality Stroke Does the patient have a stroke diagnosis?: No VTE Prior VTE?: No VTE Risk Level:: Medical - moderate - high VTE Device Contraindication: Treatment Not Indicated VTE Drug Contraindication: N/A - Med Ordered
--- NOTE | 2021-10-18 17:10 | PC.NURSE ---
New admit from ED. VSS, afebrile, no acute resp. distress noted. Fall precautions maintained. Bed in low position, call cuellar within reach. Will continue to monitor and treat per plan of care.
[2021-10-19 03:25] VITALS: BP 149/100; PULSE 66; RESP 20; TEMP 36.6; O2SAT 98
[2021-10-19 07:30] LABS: Alanine Aminotransferase 108 U/L (0-40); Albumin Level 3.8 g/dL (3.5-5.0); Alkaline Phosphatase 84 U/L (39-117); Anion Gap 16 (12-20); Aspartate Amino Transferase 167 U/L (5-37); Bilirubin Direct 0.5 mg/dL (0.0-0.5); Bilirubin Total 1.1 mg/dL (0.0-1.0); Calcium 8.5 mg/dL (8.4-10.2); Carbon Dioxide 23 mmol/L (22-29); Chloride 105 mmol/L (96-108); Creatinine Clr Calc Pharmacy 144.7; Estimated Glomerular Filt Rate > 60; Glucose Random 91 mg/dL (60-115); Potassium 3.6 mmol/L (3.3-5.1); Sodium 140 mmol/L (135-145); Total Protein 6.5 g/dL (6.5-8.0)
[2021-10-19 07:49] LABS: Blood Urea Nitrogen 5 mg/dL (9-16)
[2021-10-19 07:52] VITALS: BP 154/89; PULSE 57; RESP 18; TEMP 36.9; O2SAT 97
[2021-10-19] MEDS: PHENobarbitaL 30 MG TABLET 60 MG PO (08:25)
[2021-10-19] MEDS: Thiamine HCL 100 MG TABLET PO (08:25)
[2021-10-19] MEDS: Losartan Potassium 25 MG TABLET PO (08:25)
[2021-10-19] MEDS: Multivitamin TABLET 1 TAB PO (08:26)
[2021-10-19] MEDS: Folic Acid 1 MG TABLET PO (08:26)
[2021-10-19] MEDS: Famotidine 20 MG TABLET PO (08:26)
[2021-10-19] MEDS: Enoxaparin Sodium 40 MG/0.4 ML SYRINGE SUBCUT (08:26)
[2021-10-19] MEDS: 0.9 % Sodium Chloride Flush 3 ML SYRINGE IVFLUSH (08:28)
[2021-10-19] MEDS: Dextrose 5 % and 0.45 % NaCl 1,000 ML 100 ML IVCONT (09:58)
--- NOTE | 2021-10-19 10:36 | P.DS_ITS ---
DS: Providers Provider Date of Service: 10/19/21 Date of admission: 10/18/21 00:17 Primary care physician: Nonstaff Physician Consults: 10/18/21 02:05 Consult to Neurology Routine Consulting Provider: [facility] Reason for consultation: seizure Attending physician on discharge: [facility] Discharging clinician: Sofia Zarate DS: Diagnosis Discharge Diagnosis (1) Seizure: Status: Acute DS: Summary Hospital Course Hospital Course: HP as per admitting provider 50-year-old male with a past medical history hypertension, abuse presented the hospital with a chief complaint of seizure.?Patient reports that he was outside with his family, suddenly he whole body shaking followed by briefly lost consciousness, family lower him ground.? Denies any tongue biting, stool accident or urinary accident.? Denies any prior history of seizures.?Reports he drinks alcohol but mentions last drink was about months ago but unsure of the timing.? Per the family patient in has been drinking alcohol.? Patient was tremulous and shaky at the time of my interview.? Denies any chest pain palpitations.? Denies any nausea vomiting or diarrhea.? Denies any abdominal discomfort.?Patient came from [place] for his daughter's graduation.?Patient denies any fever chills cough or sputum production.?Review of all other systems is negative except mentioned above ER course: Per ER team patient was tremulous, shaky concern for alcohol withdrawal, started on phenobarb protocol.? CT head showed no acute findings.? Patient also received Ativan . LEFT AGAINST MEDICAL ADVICE new onset seizure. PATIENT REPORTED THAT HE HAD NOT HAD A DRINK IN OVER 2 WEEKS AND THAT HE NORMALLY IS NOT A HEAVY DRINKER THAT HE MAY DRINK 4 TIMES A WEEK INCLUDING 4 COCKTAILS PER SITTING. DENIES ANY HISTORY OF SEIZURE IN THE PAST. During the admission he has had no other further seizure activity. he came to drop off his daughter to [employer] and he is from [place]. His plane is leaving early tomorrow morning. Was described to the patient that his workup is not complete and he requires an EEG, Neurology consultation and possible MRI due to no tentative reason for seizure. He is aware that he may be putting himself in danger of further seizure activity or other etiologies that may have caused this. He decided to leave against medical advice With the workup not being completed. Brain CT negative for acute stroke, showing question of left MCA aneurysm . He was treated with phenobarbital. He remained hemodynamically stable. He was continued on losartan for his hypertension. CT/CT angio head neck IMPRESSION: - No acute intracranial findings. Empty sella. ? - Possible 2 mm aneurysm projecting superiorly from the left MCA trifurcation on image 399 of series 6. ? 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 Time Spent with Patient Time attestation: Total time spent providing and/or coordinating discharge services: Discharge coordination time: Greater than 30 minutes Quality: Safe Use of Opioids Does Pt have an Active Cancer Diagnosis on the Problem List?: No Quality: Stroke Does the patient have a stroke diagnosis?: No Physical Exam Vital Signs: Vital Signs: Last Vital Signs Temp 98.4 F 10/19/21 07:52 Pulse 57 10/19/21 07:52 Resp 18 10/19/21 07:52 BP 154/89 H 10/19/21 07:52 Pulse Ox 97 10/19/21 07:52 O2 Del Method 10/19/21 07:52 BMI result Body Mass Index 26.4 Appearing in no acute distress head is normocephalic atraumatic eyes pupils are PERRLA sclera is anicteric mouth throat mucous membranes are intact and moist neck is supple no lymphadenopathy, no JVD noted lung sounds are clear to auscultation heart regular rate rhythm, clear S1, S2 positive bowel sounds, abdomen is soft, nontender neuro patient is alert x3, no focal deficits DS: Data Data Completed and Pending Labs on day of discharge: Laboratory Results - last 24 hr 10/19/21 06:19 Sodium 140 Potassium 3.6 Chloride 105 Carbon Dioxide 23 Anion Gap 16 BUN 5 L D Creatinine 0.69 Estim Creat Clear Calc 144.7 Estimated GFR > 60 Random Glucose 91 Calcium 8.5 Total Bilirubin 1.1 H Direct Bilirubin 0.5 AST 167 H ALT 108 H Alkaline Phosphatase 84 Total Protein 6.5 Albumin 3.8 Discharge Plan Discharge Anticipated Discharge Date/Time: 10/19/21 10:34 Patient Disposition: Left Against Medical Advice Discharge Diagnosis: Seizure Discharge Medications: Continued losartan 50 mg tablet 1 tab PO DAILY Discharge Orders: Discharge Order (Routine); Ordered 10/19/21 Ordered By: Sofia Zarate Diet: Advance to usual diet Activity on Discharge: As tolerated Care Plan Goals: LEFT AGAINST MEDICAL ADVICE Health Concerns: seizure Plan of Treatment: Patient decided to leave against medical advice, he is aware that his workup for new onset seizure has not been completed including MRI, EEG and neurology consultation. At this point there is no definitive reason for his new onset seizure. He needs to follow up with his primary care provider as soon as possible. If he has any further seizure return to the emergency department Assessment: see discharge summary
--- NOTE | 2021-10-19 10:46 | MHC.CM.PN ---
met with pt who lives in [place] where he will be rettuning no servceis indicated from cm
== END 2021-10-19 15:27 | disposition left against medical advice (07) | DRG 101 ==
LOC: HO.ED 10-18 00:22 → HO.EDOVER 10-18 00:24 → HO.IMC 10-18 14:28
PROVIDERS: Physician Assistant Medical; Admitting Provider Hospitalist; Emergency Provider Emergency Medicine; Visit Provider Nurse Practitioner Acute Care
DX: R56.9 Unspecified convulsions (principal); I10 Essential (primary) hypertension; F10.20 Alcohol dependence, uncomplicated; Z20.822 Contact with and (suspected) exposure to COVID-19; Z79.899 Other long term (current) drug therapy
CPT/HCPCS: 36415; 70450; 70496; 70498; 80048; 80076; 80307; 81001; 82077; 83605; 83735; 84484; 85025; 85027; 85610; 87635; 93005; 99285; J1650; J2560; Q9967